=== PATIENT | female | born 1995 | race Caucasian/White ===

== ENCOUNTER 2019-12-01 07:38 | Outpatient (CLI) | payer SELFPAY ==
[~2019-12-01] VITALS: Ht 175.3 cm; Wt 120.0 kg
--- NOTE | 2019-12-01 06:25 | NUR ---
PATIENT HERE FOR LEAKING OF FLUID. PATIENT ON EFM, VITALS OBTAINED, PATIENT GROSSLY RUPTURED, TRICKLING DOWN PATIENTS LEG. SVE /-2. PATIENT TEARY EYED. PATIENT STATES SHE RUPTURED AT 0430. EMOTIONAL SUPPORT PROVIDED. DR العراقي NOTIFIED AT 0639 BY JOHN TAMAYO RN. IV STARTED BY JOHN TAMAYO RN.
--- NOTE | 2019-12-01 06:30 | NUR ---
PATIENT DENIES BLEEDING AND CONTRACTIONS
[2019-12-01 07:00] VITALS: BP 136/86; PULSE 106
[2019-12-01 07:30] VITALS: BP 159/92; PULSE 101
[2019-12-01 07:33] VITALS: BP 136/86; PULSE 16; TEMP 97.9
[2019-12-01 08:00] VITALS: BP 149/92; PULSE 95
[2019-12-01 08:04] LABS: HEMATOCRIT 43.7 % (37.0-47.0); HEMOGLOBIN 14.4 g/dl (12.5-16.0); MEAN CELL VOLUME 80 fl (80.0-100.0); MEAN CORPUSCULAR HEMOGLOBIN 26 pg (27.0-31.0); MEAN CORPUSCULAR HGB CONC 33 g/dl (33.0-37.0); MEAN PLATELET VOLUME 10.2 fl (7.4-10.4); PLATELET COUNT 303 K/mm3 (130-400); RED BLOOD COUNT 5.46 M/mm3 (4.10-5.30); REDCELL DISTRIBUTION WIDTH-CV 15.1 % (11.5-14.5)
[2019-12-01 08:11] LABS: ALBUMIN 3.6 gm/dL (3.5-5.0); BILIRUBIN,TOTAL 0.5 mg/dL (0.0-1.0); CALCIUM 9.4 mg/dL (8.4-10.2); CREATININE, serum 0.53 (0.52-1.25); POTASSIUM 4.2 mmol/L (3.4-5.0); TOTAL PROTEIN 6.8 gm/dL (6.4-8.2)
[2019-12-01 08:30] VITALS: BP 150/90; PULSE 95
--- NOTE | 2019-12-01 08:34 | NUR ---
DR العراقي TALKED WITH [facility]. PATIENT ACCEPTED TO DR MARTIN. EMS ON THE WAY TO GET PATIENT TO TAKE HER TO [place]
[2019-12-01 08:50] VITALS: BP 155/92; PULSE 94
--- NOTE | 2019-12-01 08:50 | NUR ---
PATIENT OFF EFM AND AMBULATED TO EMS STRETCHER
[2019-12-01 08:51] LABS: BAND 6 % (0-10); EOSINOPHIL 1 % (0-4); LYMPHOCYTE 10 % (20.0-51.0); NEUTROPHILS 73 % (42.0-75.2); PLATELET ESTIMATE NORMAL (NORMAL)
[2019-12-01] MEDS ORDERED: PRENATAL (09:49)
== END 2019-12-01 08:57 | disposition short-term general hospital (02) ==
LOC: LDRO 07:38 → LDR 08:52 → LDRO 08:57
PROVIDERS: Obstetrics & Gynecology
DX: O26.853 Spotting complicating pregnancy, third trimester (principal); Z3A.33 33 weeks gestation of pregnancy
CPT/HCPCS: OP; J0690; J0702; J7120